=== PATIENT | female | born 1930 | race Caucasian/White ===

== ENCOUNTER → 2017-01-18 | Outpatient (CLI) | payer MEDICARE, OTHER | LOC: KOH-I 10:52 | DX: R60.9 Edema, unspecified (principal); I10 Essential (primary) hypertension; R11.0 Nausea | CPT/HCPCS: 71020 ==

== ENCOUNTER → 2017-01-27 | Outpatient (CLI) | payer MEDICARE, OTHER | LOC: KOH-I 08:00 | DX: R11.0 Nausea (principal); K82.8 Other specified diseases of gallbladder | CPT/HCPCS: 76705 ==

== ENCOUNTER 2021-01-19 12:54 | Emergency (ER) | payer OTHER ==
[~2021-01-19 12:54] MED LIST: LOSARTAN POTAS100 MG PO; NORVASC 5 MG TAB5 MG PO; OMEPRAZOLE20 M1 PO; OMNICEF 300 MG300 MG PO; SINGULAIR10 MG PO; ZITHROMAX500 MG PO
[2021-01-19 14:15] LABS: HEMOGLOBIN 14.1 gm/dl (12.3-15.3); RED BLOOD COUNT 4.75 M/UL (4.00-5.10); WHITE BLOOD COUNT 5.6 K/UL (4.5-11.0)
[2021-01-19 14:37] LABS: BUN/CREATININE RATIO 17 (0-10)
== END 2021-01-19 16:54 | disposition home or self-care (01) ==
LOC: ER1 12:54
PROVIDERS: Internal Medicine
DX: I10 Essential (primary) hypertension (principal); E87.6 Hypokalemia; Z90.710 Acquired absence of both cervix and uterus; Z88.5 Allergy status to narcotic agent
CPT/HCPCS: 71046; 80053; 82550; 82553; 83874; 84439; 84443; 84484; 85025; 93005; 99284

== ENCOUNTER → 2021-02-25 | Outpatient (CLI) | payer MEDICARE, OTHER | LOC: HEART 5 09:00 | DX: R00.1 Bradycardia, unspecified (principal); R93.1 Abnormal findings on diagnostic imaging of heart and coronary circulation; I27.20 Pulmonary hypertension, unspecified; I08.8 Other rheumatic multiple valve diseases | CPT/HCPCS: 93306 ==